=== PATIENT | female | born 1965 | race Caucasian/White ===

== ENCOUNTER 2018-04-21 08:56 | Day surgery (SDC) | payer OTHER ==
[2018-04-19 11:09] VITALS: BMI 38.7
[~2018-04-21 08:56] MED LIST: LACTATED RINGERS 1,000 ML IV SCH
[2018-04-21 09:20] VITALS: TEMP 97.4
[2018-04-21] MEDS ORDERED: LIDOCAINE 1% 20 ML VIAL (10MG/ML) FOR IV START INTRADERMA ONE (09:34)
[2018-04-21] MEDS ORDERED: LIDOCAINE 1% INJ 10MG/ML (20 ML MDV) ONE (11:41)
[2018-04-21] MEDS ORDERED: PROPOFOL 10 MG/ML 20 ML VIAL IV ONE (11:41)
--- NOTE | 2018-04-21 11:45 | P.GSHP ---
History of Present Illness H&P Date: 04/21/18 Chief Complaint: screening colonoscopy is a 52-year-old female referred from Dr. Johnston. Patient safe for screening colonoscopy. She denies a significant GI complaints. Past Medical History Past Medical History: Hyperlipidemia, Thyroid Disorder History of Any Multi-Drug Resistant Organisms: None Reported Past Surgical History: Bladder Surgery Additional Past Surgical History / Comment(s): COLONOSCOPY, WISDOM TEETH EXTRACTION Past Anesthesia/Blood Transfusion Reactions: No Reported Reaction Smoking Status: Current every day smoker - Past Family History Mother Family Medical History: Cancer Father Family Medical History: Cancer Medications and Allergies Home Medications Medication Instructions Recorded Confirmed Type Cetirizine HCl 10 mg PO DAILY 04/19/18 04/21/18 History Divalproex ER [Depakote ER] 1,000 mg PO HS 04/19/18 04/21/18 History Fenofibrate 50 mg PO HS 04/19/18 04/21/18 History Levothyroxine Sodium [Synthroid] 50 mcg PO DAILY 04/19/18 04/21/18 History Rosuvastatin Calcium [Crestor] 20 mg PO HS 04/19/18 04/21/18 History Allergies Allergy/AdvReac Type Severity Reaction Status Date / Time No Known Allergies Allergy Verified 04/21/18 09:16 Surgical - Exam Vital Signs Temp Pulse Resp BP Pulse Ox 97.4 F L 74 16 139/76 97 04/21/18 09:19 04/21/18 09:19 04/21/18 09:19 04/21/18 09:19 04/21/18 09:19 - General well developed, no distress - Eyes PERRL - ENT normal pinna - Neck no masses - Respiratory normal expansion - Cardiovascular Rhythm: regular - Abdomen Abdomen: soft, non tender Assessment and Plan Assessment: we'll perform screening colonoscopy.
--- NOTE | 2018-04-21 12:03 | P.OP ---
Date of Procedure: 04/21/18 Preoperative Diagnosis: screening colonoscopy Postoperative Diagnosis: colonic polyps Procedure(s) Performed: colonoscopy Anesthesia: MAC Surgeon: Khurram Blackman Pathology: other (rectal polyp, sigmoid colon polyp) Condition: stable Disposition: PACU Description of Procedure: the patient's placed on the endoscopy table lateral position. She received IV sedation. Digital rectal exam performed which revealed no abnormalities. The flexible colonoscope was then placed patient anus and passed throughout the entire colon. The ileocecal valve sutures. The cecum, ascending and transverse colon appeared normal. The descending colon appeared normal. In the sigmoid colon a small polyp seen this removed with a coldforcep. Scope was brought back the rectum and another polyp was seen this removed with the cold forcep.scope was withdrawn for patient.
[2018-04-21 12:26] VITALS: BP 129/84; PULSE 94; RESP 18
== END 2018-04-21 12:50 | disposition home or self-care (01) ==
LOC: ORWHC2ENDO 08:56
PROVIDERS: ATTEND Surgery
DX: Z12.11 Encounter for screening for malignant neoplasm of colon (principal); K63.5 Polyp of colon; E78.5 Hyperlipidemia, unspecified; E07.9 Disorder of thyroid, unspecified; F17.210 Nicotine dependence, cigarettes, uncomplicated; F31.9 Bipolar disorder, unspecified; K62.1 Rectal polyp; Z79.899 Other long term (current) drug therapy; Z79.890 Hormone replacement therapy
CPT/HCPCS: 88305; 45380; J2001; J2704

== ENCOUNTER → 2019-04-23 | Outpatient (CLI) | payer OTHER ==
--- NOTE | 2019-04-23 07:51 | US ---
EXAMINATION TYPE: US abdomen complete DATE OF EXAM: 04/23/2019 COMPARISON: NONE CLINICAL HISTORY: 53-year-old female R10.84 generalized abdominal pain. TECHNIQUE: Multiple sonographic images of the abdomen are obtained. FINDINGS: EXAM MEASUREMENTS: Liver Length: 16.1 cm Gallbladder Wall: 0.2 cm CBD: 0.3 cm Spleen: 11.6 cm Right Kidney: 13.7 x 4.4 x 5.3 cm Left Kidney: 13.8 x 6.0 x 4.8 cm Pancreas: Tail obscured by overlying bowel gas Liver: Increased echogenicity and slightly attenuating. Gallbladder: no evidence of stones Evidence for sonographic Velarde's sign: no CBD: wnl Spleen: wnl Right Kidney: Prominent size with preserved echotexture, no evidence of hydronephrosis Left Kidney: Prominent size with preserved echotexture, no evidence of hydronephrosis Upper IVC: wnl Abd Aorta: appears wnl IMPRESSION: Echogenic appearance to the liver. Correlate for underlying hepatic steatosis.
== END | disposition home or self-care (01) ==
LOC: RADUSWWP 07:03
PROVIDERS: ATTEND Family Medicine
DX: R10.815 Periumbilic abdominal tenderness (principal); R10.84 Generalized abdominal pain
CPT/HCPCS: 76700